=== PATIENT | male | born 1995 | race Native Hawaiian/Other Pacific Islander ===

== ENCOUNTER 2019-11-04 22:19 | Emergency (ER) | payer OTHER ==
[~2019-11-04] VITALS: Ht 182.9 cm; Wt 104.3 kg
[2019-11-05 00:30] VITALS: BP 135/75; TEMP 98.6
== END 2019-11-05 00:30 | disposition home or self-care (01) ==
LOC: ED 22:19
DX: L25.3 Unspecified contact dermatitis due to other chemical products (principal)
CPT/HCPCS: 96372; 99282; J2930